=== PATIENT | male | born 1945 | race Caucasian/White ===

== ENCOUNTER → 2018-11-01 | Outpatient (CLI) | payer MEDICARE, BC ==
[~2018-11-01] MED LIST: ASPIRIN 81M81 MG/TA2 PO; GLUCOPHAGE500 MG/TAB PO; LORTAB 5/500 501 TAB PO; PRINIVIL20 MG PO; SILVADENE CREAM1 TU TP; ZOCOR 20MG20 MG PO; ZYLOPRIM 100MG100 MG PO; [UNRECOGNIZED DRUG - OTHER]
== END ==
LOC: COL.VAS 15:00
DX: I10 Essential (primary) hypertension (principal)

== ENCOUNTER → 2019-02-04 | Outpatient (CLI) | payer MEDICARE, BC | LOC: ZCOL.LAB 16:22 | DX: H60.501 Unspecified acute noninfective otitis externa, right ear (principal) ==

== ENCOUNTER 2019-03-15 09:26 | Emergency (ER) | payer MEDICARE, BC ==
[~2019-03-15] VITALS: Ht 167.6 cm; Wt 75.0 kg
[2019-03-15 10:13] LABS: BASO # 0.1 (0.0-0.2); EOS # 0.1 (0.0-0.7); EOS % 0.8 % (0-4.0); GRAN # 4.6 (1.4-6.5); GRAN % 64.2 % (42.2-75.2); HEMATOCRIT 48.7 % (42.0-52.0); HEMOGLOBIN 16.2 g/dl (13.5-18.0); LYMPH # 1.7 (1.2-3.4); LYMPH % 23.3 % (20.0-51.0); MEAN CELL VOLUME 92 fl (80.0-100.0); MEAN CORPUSCULAR HEMOGLOBIN 31 pg (27.0-31.0); MEAN CORPUSCULAR HGB CONC 33 g/dl (33.0-37.0); MEAN PLATELET VOLUME 10.1 fl (7.4-10.4); MONO # 0.7 (0.1-0.6); PLATELET COUNT 209 K/mm3 (130-400); RED BLOOD COUNT 5.31 M/mm3 (4.20-5.60); REDCELL DISTRIBUTION WIDTH-CV 13.8 % (11.5-14.5)
[2019-03-15 10:14] LABS: INR 1.1 (0.8-3.0); PROTHROMBIN TIME 13.1 SECONDS (9.7-12.8)
[2019-03-15 10:26] LABS: ALBUMIN 4.5 gm/dL (3.5-5.0); BILIRUBIN,TOTAL 1.1 mg/dL (0.0-1.0); CALCIUM 9.4 mg/dL (8.4-10.2); CREATININE, serum 0.83 (0.66-1.25); POTASSIUM 4.3 mmol/L (3.4-5.0); TOTAL PROTEIN 7.6 gm/dL (6.4-8.2)
[2019-03-15] MEDS ORDERED: NORCO 325 MG-51 TAB PO (11:37)
[2019-03-15 11:56] VITALS: BP 119/75; PULSE 69
== END 2019-03-15 11:56 | disposition home or self-care (01) ==
LOC: COL.ER 09:26
PROVIDERS: Emergency Medicine
DX: S06.0X0A Concussion without loss of consciousness, initial encounter (principal); S49.91XA Unspecified injury of right shoulder and upper arm, initial encounter; R40.2412 Glasgow coma scale score 13-15, at arrival to emergency department; V86.59XA Driver of other special all-terrain or other off-road motor vehicle injured in nontraffic accident, initial encounter; Y92.009 Unspecified place in unspecified non-institutional (private) residence as the place of occurrence of the external cause

== ENCOUNTER → 2020-03-12 | Outpatient (CLI) | payer MEDICARE, BC ==
[~2020-03-12] MED LIST changes: +NORCO 325 MG-51 TAB PO
== END ==
LOC: COL.RAD 07:42
DX: K44.9 Diaphragmatic hernia without obstruction or gangrene (principal); K57.30 Diverticulosis of large intestine without perforation or abscess without bleeding

== ENCOUNTER → 2020-04-17 | Outpatient (CLI) | payer MEDICARE, BC | LOC: COL.RAD 07:16 | DX: K76.0 Fatty (change of) liver, not elsewhere classified (principal); K80.20 Calculus of gallbladder without cholecystitis without obstruction ==

== ENCOUNTER 2020-06-20 09:00 | Emergency (ER) | payer MEDICARE, BC ==
[~2020-06-20] VITALS: Ht 167.6 cm; Wt 67.7 kg
[2020-06-20 09:05] VITALS: TEMP 98.8
[2020-06-20 09:19] LABS: BASO # 0.1 (0.0-0.2); BASO % 1.1 % (0.0-2.0); EOS # 0.1 (0.0-0.7); EOS % 1.9 % (0-4.0); GRAN # 4.3 (1.4-6.5); GRAN % 58.5 % (42.2-75.2); HEMATOCRIT 47.3 % (42.0-52.0); HEMOGLOBIN 15.7 g/dl (13.5-18.0); LYMPH # 2.1 (1.2-3.4); LYMPH % 28.3 % (20.0-51.0); MEAN CELL VOLUME 93 fl (80.0-100.0); MEAN CORPUSCULAR HEMOGLOBIN 31 pg (27.0-31.0); MEAN CORPUSCULAR HGB CONC 33 g/dl (33.0-37.0); MEAN PLATELET VOLUME 9.8 fl (7.4-10.4); MONO # 0.7 (0.1-0.6); MONO % 9.7 % (1.7-9.3); PLATELET COUNT 244 K/mm3 (130-400); RED BLOOD COUNT 5.07 M/mm3 (4.20-5.60); REDCELL DISTRIBUTION WIDTH-CV 13.2 % (11.5-14.5)
[2020-06-20 09:28] LABS: COLLECTION METHOD CLEAN CATCH
[2020-06-20 09:28] LABS: ALBUMIN 4.5 gm/dL (3.5-5.0); BILIRUBIN,TOTAL 1.3 mg/dL (0.0-1.0); CALCIUM 9.2 mg/dL (8.4-10.2); CREATININE, serum 0.8 (0.66-1.25); TOTAL PROTEIN 7.4 gm/dL (6.4-8.2)
[2020-06-20] MEDS ORDERED: PROTONIX 40MG T40 MG PO (09:30)
[2020-06-20 09:35] LABS: PH 7 (5-8); SQUAMOUS EPITHELIAL None Seen /hpf; URINE APPEARANCE Clear; URINE BACTERIA None Seen /hpf; URINE BILIRUBIN Negative (NEGATIVE); URINE BLOOD 1+ (NEGATIVE); URINE COLOR Straw; URINE GLUCOSE Negative (NEGATIVE); URINE KETONE Negative (NEGATIVE); URINE LEUKOCYTE ESTERASE Negative (NEGATIVE); URINE NITRATE Negative (NEGATIVE); URINE PROTEIN(semi-quant) Negative (NEGATIVE); URINE RBC 0-2 /hpf; URINE UROBILINOGEN Negative (NEGATIVE)
[2020-06-20 10:50] VITALS: BP 117/79; PULSE 59
[2020-06-26] MEDS ORDERED: ZOCOR 20MG20 MG PO (08:04)
[2020-06-26] MEDS ORDERED: ULTRAM 50MG TAB50 MG PO (08:04)
[2020-06-26] MEDS ORDERED: ZYLOPRIM 100MG100 MG PO (08:15)
[2020-06-26] MEDS ORDERED: GLUCOPHAGE500 MG/TAB PO (08:18)
== END 2020-06-20 10:50 | disposition home or self-care (01) ==
LOC: COL.ER 09:00
PROVIDERS: Emergency Medicine
DX: R19.00 Intra-abdominal and pelvic swelling, mass and lump, unspecified site (principal); R63.4 Abnormal weight loss; Z88.8 Allergy status to other drugs, medicaments and biological substances
CPT/HCPCS: J7030; Q9967

== ENCOUNTER → 2020-06-29 | Outpatient (CLI) | payer MEDICARE, BC ==
[2020-06-29] VITALS (7 sets, daily range): BP systolic 112–145; BP diastolic 69–89; PULSE 67–76
[~2020-06-29] MED LIST changes: +PROTONIX 40MG T40 MG PO; +ULTRAM 50MG TAB50 MG PO
--- NOTE | 2020-06-29 10:30 | NUR ---
PT TAKEN TO CT AND POSITIONED ON TABLE. MONITORING EQUIPMENT PLACED.
== END ==
LOC: COL.RAD 09:17
DX: K86.89 Other specified diseases of pancreas (principal)
CPT/HCPCS: 32108

== ENCOUNTER → 2020-12-01 | Outpatient (CLI) | payer MEDICARE, BC | LOC: COL.VAS 07:25 | DX: Z13.6 Encounter for screening for cardiovascular disorders (principal); C25.0 Malignant neoplasm of head of pancreas; M79.89 Other specified soft tissue disorders ==